=== PATIENT | male | born 2000 | race African-American/Black ===

== ENCOUNTER 2021-05-13 14:31 | Emergency (ER) | payer OTHER, SELFPAY ==
[2021-05-13] VITALS (25 sets, daily range): BP systolic 117–151; BP diastolic 60–102; PULSE 70–107; RESP 14–23; TEMP 36.7; O2SAT 98–100
--- NOTE | ~2021-05-13 | XR_ITS ---
EXAMINATION: XR chest 2V DATE: 05/13/2021 16:13 INDICATION: Chest pain TECHNIQUE: PA and lateral views of the chest are obtained. COMPARISON: None available FINDINGS: The lungs are free of acute opacities. There is no pleural effusion or pneumothorax. The ca rdiomediastinal silhouette is normal. The visualized bones and soft tissues are unremarkable. IMPRESSION: 1. No acute cardiopulmonary abnormality. Reviewed, dictated and finalized at location B. [facility]PER
--- NOTE | 2021-05-13 15:08 | ECG_ITS ---
Measurements Intervals [place] Rate: 71 P: 47 MS: 147 QRS: -15 QRSD: 89 T: 44 QT: 322 QTc: 352 Interpretive Statements SINUS RHYTHM DELAYED PRECORDIAL R/S TRANSITION PEAKED T WAVES- CONSIDER HYPERKALEMIA OR ISCHEMIA BASELINE ARTIFACT- I, II, III, AVR, AVL, AVF, V1 ABNORMAL ECG Electronically Signed On 05-13-2021 15:15:50 SPORTS ADMINISTRATOR by Manuel Toro D.O.
[2021-05-13] MEDS: ASPIRIN 81 MG CHEWABLE TABLET 324 MG PO (16:27)
--- NOTE | 2021-05-13 16:28 | ED.CHESTPAIN ---
HPI - Chest Pain General Chief Complaint: Chest Pain Stated Complaint: CP Time Seen by Provider: 05/13/21 16:03 Source: patient Mode of arrival: ambulatory Limitations: no limitations History of Present Illness HPI narrative: This is a 21 year old male that presents to the ER for left sided chest pain present over the last couple of weeks. Reports intermittent sharp pain to the left side of the chest. Worse with deep breathing. Also worse sometimes with certain movement. No recent injury or trauma. Reports some shortness of breath. Denies fever, cough, or lower extremity edema. Related Data Allergies Allergy/AdvReac Type Severity Reaction Status Date / Time No Known Allergies Allergy Verified 05/13/21 16:31 Review of Systems Review of Systems: CONSTITUTIONAL: Denies fever CARDIOVASCULAR: Reports chest pain. Denies edema. RESPIRATORY: Reports dyspnea. Denies cough All systems reviewed & are unremarkable except as noted in HPI and below PMFSH Past Medical History Medical History (Updated 05/13/21 @ 20:10 by Naila Bird PA-C) No active medical problems Social History Social History (Updated 05/13/21 @ 16:33 by Naila Bird PA-C) Smoking status: Current every day smoker Tobacco type: e-cigarettes/vaping Exam Narrative: GENERAL: Well-appearing, well-nourished, and in no acute distress. HEAD: Normocephalic, atraumatic. EYES: EOMI. CHEST: Clear to auscultation. No respiratory distress. No wheezes rales or rhonchi. Tender to palpation of the left, anterior chest wall HEART: Regular rate and rhythm. No murmur heard. Normal peripheral pulses. EXTREMITIES: Normal range of motion. No edema. SKIN: Warm, dry, no rash. NEURO: No focal deficits. Alert and oriented x3. PSYCH: Normal mood and affect Course Vital Signs Vital signs: Vital Signs Temperature 98.0 F 05/13/21 14:36 Pulse Rate 107 H 05/13/21 14:36 Respiratory Rate 18 05/13/21 14:36 Blood Pressure 150/99 H 05/13/21 14:36 Pulse Oximetry 100 05/13/21 14:36 Temperature 98.0 F 05/13/21 14:36 Pulse Rate 81 05/13/21 19:31 Respiratory Rate 18 05/13/21 19:31 Blood Pressure 124/60 05/13/21 19:31 Pulse Oximetry 98 05/13/21 19:31 MDM - Chest Pain MDM Narrative Medical decision making narrative: Patient presents the emergency department for intermittent left-sided chest pain present over the last week. He is afebrile and nontoxic-appearing. Pain does seem to be more musculoskeletal in nature. It is reproducible. CBC and metabolic panel without concerning findings. EKG with nonspecific ST changes. Baseline and 3-hour troponin negative. D-dimer is not elevated. Chest x-ray is without acute cardiopulmonary abnormality. Patient was updated on case findings. He reports improvement with Toradol. His heart score is a 1. He is stable and felt appropriate for further outpatient evaluation. He was given warnings to return to the ER Lab Data Attestation: I reviewed the patient's lab results. Result diagrams: 05/13/21 16:34 05/13/21 16:34 Labs: Lab Results 05/13/21 05/13/21 05/13/21 Range/Units 16:34 16:34 16:34 WBC 6.4 (4.5-10.0) K/mm3 RBC 5.40 (4.6-6.20) M/mm3 Hgb 15.5 (14.0-18.0) g/dL Hct 43.9 (42.0-52.0) % MCV 81.3 (80-100) fl MCH 28.7 (26-34) pg MCHC 35.3 (32-36) g/dl RDW 12.8 (11.5-14.5) % Plt Count 249 (150-375) k/mm3 MPV 10.5 H (7.4-10.4) fl Immature Gran % (Auto) 0.5 (0-0.5) % Neut % (Auto) 59.3 (45.5-73.1) % Lymph % (Auto) 29.4 (18.3-44.2) % [place] % (Auto) 8.2 (2.6-8.5) % Eos % (Auto) 1.7 (0-4.4) % Baso % (Auto) 0.9 (0.2-1.2) % Lymph # (Auto) 1.89 (0.9-3.2) K/mm3 Converse # (Auto) 0.5 (0.1-0.6) K/mm3 Eos # (Auto) 0.1 (0-0.3) K/mm3 Baso # (Auto) 0.1 (0.0-0.1) K/mm3 Abs Immat Gran (auto) 0.03 (0.00-0.031) K/mm3 Absolute Neuts (auto) 3.8 (1.3-6.7) K/mm3 Absolute Nucleated R
[2021-05-13 16:45] LABS: Basophils Absolute Auto 0.1 K/mm3 (0.0-0.1); Basophils Percent Auto 0.9 % (0.2-1.2); Eosinophils Absolute Auto 0.1 K/mm3 (0-0.3); Eosinophils Percent Auto 1.7 % (0-4.4); Hematocrit 43.9 % (42.0-52.0); Hemoglobin 15.5 g/dL (14.0-18.0); Immature Granulocyte Absolute 0.03 K/mm3 (0.00-0.031); Immature Granulocyte Percent A 0.5 % (0-0.5); Lymphocytes Absolute Auto 1.89 K/mm3 (0.9-3.2); Lymphocytes Percent Auto 29.4 % (18.3-44.2); Mean Corpuscular HGB Conc 35.3 g/dl (32-36); Mean Corpuscular Hemoglobin 28.7 pg (26-34); Mean Corpuscular Volume 81.3 fl (80-100); Mean Platelet Volume 10.5 fl (7.4-10.4); Monocytes Absolute Auto 0.5 K/mm3 (0.1-0.6); Monocytes Percent Auto 8.2 % (2.6-8.5); Neutrophils Absolute Auto 3.8 K/mm3 (1.3-6.7); Neutrophils Percent Auto 59.3 % (45.5-73.1); Platelet Count Result 249 k/mm3 (150-375); Red Cell Distribution Width 12.8 % (11.5-14.5); White Blood Count 6.4 K/mm3 (4.5-10.0)
[2021-05-13 17:05] LABS: INR 0.9; Prothrombin Time 12.5 Seconds (11.1-14.7)
[2021-05-13 17:13] LABS: D Dimer 0.27 ug/mL (<0.48)
[2021-05-13 17:15] LABS: Alanine Aminotransferase 29 U/L (4-50); Albumin Level 4.5 g/dL (3.5-5.1); Alkaline Phosphatase 54 U/L (38-126); Anion Gap 10 mmol/L (8-16); Aspartate Amino Transferase 24 U/L (17-59); Bilirubin,Total 0.4 mg/dL (0.2-1.3); Blood Urea Nitrogen 11 mg/dL (9-20); Carbon Dioxide 22 mmol/L (22-30); Chloride 106 mmol/L (98-107); Estimated CRCL calculation 122 ml/min; Estimated Glomerular Filt Rate > 60; Glucose 88 mg/dL (65-110); Lipase 60 U/L (23-300); Potassium 3.8 mmol/L (3.4-5.0); Sodium 138 mmol/L (137-145)
[2021-05-13 17:18] LABS: NT Pro B Type Natriuretic Pept < 11 pg/mL (5-100); Troponin I < 0.012 ng/mL (0.000-0.034)
[2021-05-13] MEDS: KETOROLAC 30 MG/ML VIAL (*BKC) IV PUSH (17:42)
[2021-05-13 19:45] LABS: Troponin I < 0.012 ng/mL (0.000-0.034)
== END 2021-05-13 21:02 | disposition home or self-care (01) ==
PROVIDERS: Physician Assistant; Emergency Provider Emergency Medicine
DX: R07.89 Other chest pain (principal)
CPT/HCPCS: 36415; 71046; 80053; 83690; 83880; 84484; 85025; 85380; 85610; 85730; 93005; 96374; 99284; A9270; J1885

== ENCOUNTER 2022-03-26 12:27 | Emergency (ER) | payer SELFPAY ==
[2022-03-26 12:36] VITALS: BP 147/70; PULSE 76; RESP 18; TEMP 37.1; O2SAT 100
--- NOTE | 2022-03-26 12:37 | ED.SKABFB ---
HPI - Skin/Abscess/Foreign Bdy General Chief complaint: Skin/Abscess/Foreign Body Stated complaint: Boil on Right Inner Thigh Time Seen by Provider: 03/26/22 12:37 Source: patient, RN notes reviewed and old records reviewed Mode of arrival: ambulatory Limitations: no limitations History of Present Illness HPI narrative: 22 year old male who presents to [facility] care with complaints of boil to his right groin region for the past 2-3 days with increased pain and swelling. patient reports that he has been applying warm compresses to the right groin boil area and has been taking Ibuprofen for his pain. Patient denies any known fevers, chills or sweats. MD complaint: abscess/boil Onset (ago): day(s) (3) Location: RLE (right groin area) Severity scale (1-10): 7 Treatments prior to arrival: NSAID and other (warm compresses) Related Data Allergies Allergy/AdvReac Type Severity Reaction Status Date / Time No Known Allergies Allergy Verified 05/13/21 16:31 Review of Systems Review of Systems: CONSTITUTIONAL: Denies fever, chills, or sweats. EYES: Denies visual changes, redness, or discharge. ENT: Denies rhinorrhea, congestion, sore throat, or otalgia. CARDIOVASCULAR: Denies chest pain, palpitations, or edema. RESPIRATORY: Denies cough or dyspnea. GASTROINTESTINAL: Denies abdominal pain, nausea, vomiting, or diarrhea. GENITOURINARY: Denies dysuria or hematuria. SKIN: positive for right groin abscess MUSCULOSKELETAL: Denies back pain, joint pain, or myalgia. NEUROLOGIC: Denies headache, numbness, or weakness. PSYCHIATRIC: Denies anxiety or depression. All systems reviewed & are unremarkable except as noted in HPI and below PMFSH Past Medical History Medical History (Updated 03/26/22 @ 13:08 by Neda Mendoza NP) No active medical problems Social History Social History (Updated 05/13/21 @ 16:33 by Naila Bird PA-C) Smoking status: Current every day smoker Tobacco type: e-cigarettes/vaping Comments At time of signature, agree with nursing past medical, surgical, social and family history. There is no relevant family history pertinent to the presenting complaint Exam Narrative: GENERAL: Well-appearing, well-nourished, and in no acute distress. HEAD: Normocephalic, atraumatic. EYES: PERRLA and EOMI. ENT: Nares clear, no rhinorrhea or epistaxis. Mucous membranes moist. NECK: Supple. No lymphadenopathy CHEST: Clear to auscultation. No respiratory distress. SAO2 100% on room air HEART: Regular rate and rhythm. No murmur heard. Normal peripheral pulses. ABDOMEN: Soft, nontender, nondistended, normal active bowel sounds. EXTREMITIES: Normal range of motion. No edema. SKIN: Warm, dry 2-1/2 x 1 cm abscess to right inner groin region, painful and red with fluctuant tissue noted. NEURO: No focal deficits. Alert and oriented x3. Course Course Level of Care: Express Care Visit Vital Signs Vital signs: Vital Signs Temperature 37.1 C 03/26/22 12:36 Pulse Rate 76 03/26/22 12:36 Respiratory Rate 18 03/26/22 12:36 Blood Pressure 147/70 H 03/26/22 12:36 Pulse Oximetry 100 03/26/22 12:36 Oxygen Delivery Room Air 03/26/22 12:36 Temperature 37.1 C 03/26/22 12:36 Pulse Rate 76 03/26/22 12:36 Respiratory Rate 18 03/26/22 12:36 Blood Pressure 147/70 H 03/26/22 12:36 Pulse Oximetry 100 03/26/22 12:36 Oxygen Delivery Room Air 03/26/22 12:36 Procedures Abscess I/D right groin boil: Date of Incision: 03/26/22 Time of Incision: 12:42 Side (if applicable): right Sedation/analgesia: none Local Anesthetic: lidocaine 1% Amount of anesthesia used (mL): 2 Technique: incised with #11 blade Amount of fluid expressed (mL): 30 Irrigation: Yes Packing used?: none I&D Results: Pus and Blood Complications: other (no complaints) Abcess I&D Additional Comments: skin localized with 2cc of 1% Lidocaine and incision ma
--- NOTE | 2022-03-26 13:05 | PC.NURSE ---
wound cleansed, opened and drained by Coleman Mendoza NP
== END 2022-03-26 13:15 | disposition home or self-care (01) ==
PROVIDERS: Emergency Provider Registered Nurse
DX: L02.214 Cutaneous abscess of groin (principal); F17.290 Nicotine dependence, other tobacco product, uncomplicated
CPT/HCPCS: 10060; 99213; G0463

== ENCOUNTER 2024-11-29 17:21 | Emergency (ER) | payer BC, SELFPAY ==
--- OUTSIDE RECORDS SUMMARY | 2024-11-29 17:23 | XMS_ITS | Clinical Summary ---
Author Organization [email or web address] [address] [place] [address] [place] [id number] Care Team Providers Care Press Operator Automatic Name Role Phone Unavailable Primary Care Provider Unavailabl e Allergies No known active allergies Social History Tobacco Use Types Packs/Day Years Used Date Smoking Tobacco: Never Assessed Sex and Gender Information Value Date Recorded Sex Assigned at Not on file Legal Sex Male 2:38 PM CDT Gender Identity Not on file Sexual Orientation Not on file Plan of Treatment Health Maintenance Due Date Last Done Comments HPV VACCINES (1 - Male 3-dose series) 2014 DTAP/TDAP/TD VACCINES (1 - Tdap) 2018 HEPATITIS B VACCINES (1 of 3 - 19+ 3-dose series) 2018 INFLUENZA VACCINE (#1) 2024 04/24/2022, 2020 Insurance [facility] FEDERAL
[2024-11-29 17:31] VITALS: BP 139/63; PULSE 102; RESP 18; TEMP 37.4; O2SAT 100
--- NOTE | 2024-11-29 17:33 | ED_ITS ---
HPI - Ear Problem General Chief complaint: Ear Stated complaint: ear pain/ clogged ear Time Seen by Provider: 11/29/24 17:33 Source: patient and RN notes reviewed Mode of arrival: ambulatory Limitations: no limitations History of Present Illness HPI Narrative: 24-year-old male presents Express Care complaining of right ear pain for 5 days. Patient said he has had ongoing issue over the last couple weeks and thought it was an earwax problem in use De[employer] last week. Patient stated over the weekend he went to the [employer] shop in [place] may have got water in his ear developed ear pain shortly after. Patient denies any discharge, fevers, upper respiratory symptoms, cough, body aches, chills, or any other symptoms. Patient has been taking Tylenol for pain with some relief. Related Data Allergies Allergy/AdvReac Type Severity Reaction Status Date / Time No Known Allergies Allergy Verified 11/29/24 17:30 Review of Systems Review of Systems: CONSTITUTIONAL: Denies fever, chills, body aches, or sweats. EYES: Denies visual changes, redness, or discharge. ENT: Negative for for rhinorrhea, congestion, sore throat. Positive for otalgia CARDIOVASCULAR: Denies chest pain, palpitations, or edema. RESPIRATORY: Negative for coughing and dyspnea. GASTROINTESTINAL: Denies abdominal pain, nausea, vomiting, or diarrhea. GENITOURINARY: Denies dysuria or hematuria. SKIN: Denies rash or itching. MUSCULOSKELETAL: Denies back pain, joint pain, or myalgia. NEUROLOGIC: Denies headache, numbness, or weakness. PSYCHIATRIC: Denies anxiety or depression. All other systems reviewed are negative, except as documented in HPI. PMFSH Past Medical History Medical History No active medical problems Social History Social History Smoking status: Current every day smoker Tobacco type: e-cigarettes/vaping Comments At the time of my signature, I reviewed and agree with the nursing past medical, surgical, social, and family history. There is no relevant family history pertinent to the patient complaint. Exam Narrative: GENERAL: This is a well-nourished, well-developed adult, in no apparent distress. They are non ill-appearing, nontoxic appearing. HEAD: normocephalic, atraumatic. EYES: Sclera clear/white. Vision is grossly intact. Conjunctiva normal bilaterally. Extraocular movements intact. EARS: External ears normal, left auditory canal clear and without redness, swelling, drainage, right auditory canal erythematous without exudate or drainage. TMs without erythema or perforation. Hearing grossly intact. NOSE: External nose normal with no obvious nasal discharge, nasal turbinates without redness or swelling, no rhinorrhea. THROAT: Mucous membranes moist, posterior pharynx pink without redness or swelling, no exudate Uvula is midline. NECK: Neck supple, non-tender without lymphadenopathy, masses or thyromegaly. CARDIOVASCULAR: Regular rate and rhythm RESPIRATORY: Respiratory rate normal, respiratory effort nonlabored, no respiratory distress SKIN: warm, Dry, intact with no suspicious lesions or rash, good texture and turgor. NEURO: awake, alert, and oriented to person, place and time. There were no obvious focal neurologic abnormalities. EXTREMITIES: No joint tenderness, effusion, or edema noted. Course Course Emergency Course: Portions of this record may have been created with voice recognition software Level of Care: Express Care Visit Vital Signs Vital signs: Vital Signs Temperature 99.3 F 11/29/24 17:31 Pulse Rate 102 H 11/29/24 17:31 Respiratory Rate 18 11/29/24 17:31 Blood Pressure 139/63 11/29/24 17:31 Pulse Oximetry 100 11/29/24 17:31 Oxygen Delivery Room Air 11/29/24 17:31 Temperature 99.3 F 11/29/24 17:31 Pulse Rate 102 H 11/29/24 17:31 Respiratory Rate 18 11/29/24 17:31 Blood Pressure 139/63 11/29/24 17:31 Pulse Oximetry 100 11/29/24 17:31 Oxygen Delivery Room Air 11/29/24 17:31 Medical Decision Making MDM Narrative Medical decision making narrative: Patient likely has a right-sided otitis externa. Right TM without redness, swelling, or drainage. Left ear is unremarkable. Will treat empirically with ciprofloxacin-hydrocortisone ear drops. Discussed physical exam findings. Advised supportive measures and signs/symptoms to go to the ER. Pt is appropriate for outpt treatment and f/u. 1845-patient called her pharmacy and stated that the ciprofloxacin- hydrocortisone ear drops were too expensive. Will cancel prescription and prescribe ofloxacin ear drops. Differential Diagnosis Differential Diagnosis: Otitis media, otitis externa, impacted cerumen, upper respiratory infection Vital Signs Vital Signs: Vital Signs Temperature 99.3 F 11/29/24 17:31 Pulse Rate 102 H 11/29/24 17:31 Respiratory Rate 18 11/29/24 17:31 Blood Pressure 139/63 11/29/24 17:31 Pulse Oximetry 100 11/29/24 17:31 Oxygen Delivery Room Air 11/29/24 17:31 Temperature 99.3 F 11/29/24 17:31 Pulse Rate 102 H 11/29/24 17:31 Respiratory Rate 18 11/29/24 17:31 Blood Pressure 139/63 11/29/24 17:31 Pulse Oximetry 100 11/29/24 17:31 Oxygen Delivery Room Air 11/29/24 17:31 Discharge Plan Discharge Clinical Impression: Otitis externa Qualifiers: Otitis externa type: diffuse Chronicity: acute Laterality: right Qualified Code(s): H60.311 - Diffuse otitis externa, right ear Patient Disposition: Home Condition: Stable Instructions: Antibiotic Form, Ear Infection (GEN) Additional Instructions: Take antibiotic drops as directed. Tylenol and ibuprofen every 8 hours as needed to reduce fever, pain Avoid water or anything into the ear tele infection resolves. Avoid using Q- tips or peroxide. Follow up with your personal physician for further evaluation and treatment within 3-5days. If your symptoms persist, change or worsen significantly, go to the emergency department for further evaluation. Patient Language: Libyan Prescriptions: New ofloxacin 0.3 % drops 10 drp RIGHT EAR DAILY 7 Days Qty: 10 0RF Follow-up/Referrals: PHYSICIAN,MEDICAL LAB ASSISTANT [Primary Care Provider] - Time of Disposition: 17:45
== END 2024-11-29 17:49 | disposition home or self-care (01) ==
PROVIDERS: Referring Provider Emergency Medicine
DX: H60.311 Diffuse otitis externa, right ear (principal); F17.290 Nicotine dependence, other tobacco product, uncomplicated
CPT/HCPCS: 99213; G0463

== ENCOUNTER 2025-02-21 17:38 | Emergency (ER) | payer BC, SELFPAY ==
--- OUTSIDE RECORDS SUMMARY | 2025-02-21 17:42 | XMS_ITS | Clinical Summary ---
Author Organization [facility] [address] [place] [address] [place] [id number] Care Team Providers Care Android Software Engineer Name Role Phone Unavailable Primary Care Provider [...] 19+ 3-dose series) 2018 INFLUENZA VACCINE (#1) 2025 04/24/2022, 2020 Insurance [facility] FEDERAL
[2025-02-21 17:45] VITALS: BP 131/82; PULSE 98; RESP 18; TEMP 36.9; O2SAT 100
--- NOTE | 2025-02-21 17:45 | ED_ITS ---
HPI - Ear Problem General Chief complaint: Ear Stated complaint: ear pain Time Seen by Provider: 02/21/25 17:47 Source: patient, RN notes reviewed and old records reviewed Mode of arrival: ambulatory Limitations: no limitations History of Present Illness HPI Narrative: 25-year-old male presents to the [facility] with complaints of left ear discomfort. Patient had a similar episode a couple months ago. Patient denies any other symptoms Requesting a work note Related Data Allergies Allergy/AdvReac Type Severity Reaction Status Date / Time No Known Allergies Allergy Verified 02/21/25 17:47 Review of Systems Review of Systems: All systems reviewed & are unremarkable except as noted in HPI and below Constitutional: Constitutional: Reports no additional constitutional complaints ENT: Reports as per HPI and Reports otalgia Cardiovascular: Cardiovascular: Reports no additional cardiovascular complaints, Denies chest pain and Denies dyspnea Respiratory: Respiratory: Reports no additional respiratory complaints, Denies chest congestion, Denies cough and Denies dyspnea Musculoskeletal: Musculoskeletal: Reports no additional musculoskeletal complaints Integumentary/Breasts: Skin/Breast: Reports system reviewed and no additional complaints, except as docu PMFSH Past Medical History Medical History No active medical problems Social History Social History Smoking status: Current every day smoker Tobacco type: e-cigarettes/vaping Comments At the time of my signature, I reviewed and agree with the nursing past medical, surgical, social, and family history. There is no relevant family history pertinent to the patient complaint. Exam Const: General: cooperative, healthy appearing, comfortable, no acute distress, well developed, alert and well nourished Nutritional Appearance: well nourished Orientation/consciousness: patient oriented x3 Limitations: no limitations HENMT: Head: normal to inspection Ears: hearing grossly normal bilaterally, external ears normal and Abnormal EAC present erythema (Mild erythema without edema) on the left and EAC tenderness on the left Mouth: Yes Normal oral and palatal mucosa present, Yes lip normal, Yes tongue normal and Yes moist mucous membranes Throat: posterior oropharynx normal, uvula midline and no uvular edema Eyes: General: appearance normal, both eyes and all related structures Alignment and Position: alignment normal Neck: Neck: normal visual inspection, full ROM, no lymphadenopathy and no meningeal signs Chest: Chest palpation & inspection: normal inspection of the chest Resp: Effort & Inspection: normal respiratory effort and able to speak in complete sentences Auscultation: clear to auscultation bilaterally, no crackles, no rales, no rhonchi and no wheezes Cardio: Rate: regular rate Skin: General skin exam: normal color and no rashes or lesions noted Neuro: General: patient oriented x3, gait normal, moves all extremities and no meningeal signs Cognition (Neuro): normal cognition Speech: normal speech Gait exam (Neuro): Normal gait present Extrem: General: normal to inspection, full ROM, capillary refill normal and normal gait Psych: Appearance: grossly normal and well kempt Mental Status: mental status grossly normal Speech and movement: Normal speech and movement present and Clear speech present Affect: normal affect Attitude: cooperative Course Course Level of Care: Express Care Visit Vital Signs Vital signs: Vital Signs Temperature 98.4 F 02/21/25 17:45 Pulse Rate 98 02/21/25 17:45 Respiratory Rate 18 02/21/25 17:45 Blood Pressure 131/82 02/21/25 17:45 Pulse Oximetry 100 02/21/25 17:45 Oxygen Delivery Room Air 02/21/25 17:45 Temperature 98.4 F 02/21/25 17:45 Pulse Rate 98 02/21/25 17:45 Respiratory Rate 18 02/21/25 17:45 Blood Pressure 131/82 02/21/25 17:45 Pulse Oximetry 100 02/21/25 17:45 Oxygen Delivery Room Air 02/21/25 17:45 Reviewed Medical Decision Making MDM Narrative Medical decision making narrative: Patient sitting comfortably in exam room. Nontoxic, vitals stable. Patient in no acute distress Patient presents with mild pink area to the ear canal, no edema noted. TM is normal. Patient is appropriate for outpatient treatment, will cover with antibiotic, steroid drop Discharge instructions reviewed with patient, as well as provided in writing per nursing staff. The instructions also include specific and strict return/GO TO THE ER as well as f/u information. All questions have been answered, and the patient deny any further questions with discharge and discharge plan. Some parts of this dictation were generated by voice recognition software and may contain typographical and/or grammatical inaccuracies. Differential Diagnosis Differential Diagnosis: Otitis media, serous otitis, otitis externa Medical Records Medical records reviewed: Yes I reviewed the external patient's medical records. Vital Signs Vital Signs: Vital Signs Temperature 98.4 F 02/21/25 17:45 Pulse Rate 98 02/21/25 17:45 Respiratory Rate 18 02/21/25 17:45 Blood Pressure 131/82 02/21/25 17:45 Pulse Oximetry 100 02/21/25 17:45 Oxygen Delivery Room Air 02/21/25 17:45 Temperature 98.4 F 02/21/25 17:45 Pulse Rate 98 02/21/25 17:45 Respiratory Rate 18 02/21/25 17:45 Blood Pressure 131/82 02/21/25 17:45 Pulse Oximetry 100 02/21/25 17:45 Oxygen Delivery Room Air 02/21/25 17:45 Reviewed Lab Data Lab results reviewed: Yes I reviewed the patient's lab results. Labs: Reviewed Critical Care Time Critical Care Time Critical Care Time: No Discharge Plan Discharge Clinical Impression: Otitis externa Qualifiers: Otitis externa type: unspecified type Chronicity: acute Laterality: left Qualified Code(s): H60.502 - Unspecified acute noninfective otitis externa, left ear Patient Disposition: Home Condition: Stable Instructions: Antibiotic Form, Earache (ED) Additional Instructions: Do not put anything ear. If you are having a hard time finding a physician please call our [facility] liaison at [phone]. Use ear drops as prescribed Patient Language: Bengali Prescriptions: New oeuifssh-qyuvkoslr-MK 3.5-10,000-1 mg/mL-unit/mL-% drops,suspension 4 drp LEFT EAR TID 7 Days Qty: 10 0RF Follow-up/Referrals: PHYSICIAN,SALES MARKETING MANAGER [Primary Care Provider, Internal Medicine] Shiv Blank MD [Physician, Family Practice] Stand Alone Forms: Work/School Release IP Time of Disposition: 17:55
== END 2025-02-21 17:58 | disposition home or self-care (01) ==
PROVIDERS: Emergency Provider Nurse Practitioner; Referring Provider Emergency Medicine
DX: H60.502 Unspecified acute noninfective otitis externa, left ear (principal); F17.290 Nicotine dependence, other tobacco product, uncomplicated
CPT/HCPCS: 99213; G0463